=== PATIENT | female | born 1960 | race Caucasian/White ===

== ENCOUNTER → 2016-11-23 | Outpatient (CLI) | payer BC ==
--- NOTE | 2016-11-23 16:21 | CT ---
EXAMINATION: Non contrast CT head and CT sinuses. Coronal and sagittal reformats. HISTORY: Chronic sinusitis FINDINGS: Head: No evidence of intra or extra axial hemorrhage, mass, midline shift, hydrocephalus or edema. No hypoattenuation changes in the major vascular territories to suggest acute infarct. No abnormal intracranial calcifications are detected. No evidence of substantial vascular calcifications. Pit uitary fossa appears unremarkable. The calvarium is intact. No evidence of skull fracture. Moderate degenerative changes are noted within the right temporomandibular joint. Sinuses: The maxillary, and sphenoid sinuses are grossly clear. The frontal sinuses are hypoplastic. There is opacification of a few ethmoid air cells. The frontoethmoidal and sphenoethmoidal recesses are clear. Bilateral antrostomy changes are noted. No air-fluid levels or bony destruction. Nasal s eptum is essentially midline. The mastoid air cells are clear. Bone mineralization appears normal. N o evidence of a facial bone injury. IMPRESSION: 1. No acute intracranial findings. 2. Minimal paranasal sinus disease. 3. Moderate right temporomandibular joint degenerative changes.
== END ==
LOC: MW.DI 12:54
PROVIDERS: ATTEND Physician Assistant
DX: J01.00 Acute maxillary sinusitis, unspecified (principal); J32.9 Chronic sinusitis, unspecified
CPT/HCPCS: 70450; 70450-26; 70486; 70486-26; 87070; 87102; 87205

== ENCOUNTER 2017-09-19 12:17 | Day surgery (SDC) | payer BC ==
[~2017-09-19 12:17] MED LIST: Lactated Ringers 1,000 ML IV SCH; Sodium Chloride 0.9% 10 ML Syringe FLUSH PRN; Sodium Chloride 0.9% 2.5 ML Syringe FLUSH PRN
[2017-09-19] MEDS ORDERED: fentaNYL 100 MCG/2 ML SDV ONE (12:24)
[2017-09-19] MEDS ORDERED: Midazolam 1 MG/ML 2 ML SDV ONE (12:24)
[2017-09-19] MEDS ORDERED: Propofol 200 MG/20 ML SDV ONE (12:24)
--- NOTE | 2017-09-19 13:02 | PCM.PREANE ---
Preanesthetic Assessment - Anesthesia/Transfusion/Family Hx Anesthesia History: Prior Anesthesia Without Reaction Family History of Anesthesia Reaction: No Transfusion History: No Prior Transfusion(s) Intubation History: Unknown - Review of Systems General: No Symptoms Pulmonary: No Symptoms Cardiovascular: No Symptoms Gastrointestinal: No Symptoms, Other (family h/o colon cancer) Neurological: No Symptoms Other: Reports: None - Physical Assessment O2 Sat by Pulse Oximetry: 98 Respiratory Rate: 16 Vital Signs: Last Vital Signs Temp 37.4 C 09/19/17 12:43 Pulse Resp 16 09/19/17 12:43 BP 120/80 09/19/17 12:43 Pulse Ox 98 09/19/17 12:43 Height: 1.68 m Weight: 78.018 kg ASA Class: 2 Mental Status: Alert & Oriented x3 Airway Class: Mallampati = 2 Dentition: Reports: Normal Dentition Thyro-Mental Finger Breadths: 3 Mouth Opening Finger Breadths: 3 ROM/Head Extension: Full Lungs: Clear to Auscultation, Normal Respiratory Effort Cardiovascular: Regular Rate, Regular Rhythm - Allergies Allergies/Adverse Reactions: Allergies Allergy/AdvReac Type Severity Reaction Status Date / Time No Known Allergies Allergy Verified 09/14/17 08:19 - Blood Blood Available: No - Anesthesia Plan Pre-Op Medication Ordered: None - Acknowledgements Anesthesia Type Planned: MAC Pt an Appropriate Candidate for the Planned Anesthesia: Yes Alternatives and Risks of Anesthesia Discussed w Pt/Guardian: Yes Pt/Guardian Understands and Agrees with Anesthesia Plan: Yes PreAnesthesia Questionnaire HEENT History: Reports: Allergic Rhinitis, Other (See Below) Other HEENT History: wears glasses/contacts, Cardiovascular History: Reports: High Cholesterol, Hypertension Gastrointestinal History: Reports: GERD Genitourinary History: Reports: Renal Calculus [employer] History: Reports: Musculoskeletal History: Reports: Arthritis Psychiatric History: Reports: Anxiety, Depression Immunologic History: Reports: Other (See Below) Other Immunologic History: hx MRSA Oncologic (Cancer) History: Reports: Basal Cell Carcinoma Other Oncologic History: basal cell to upper lip Dermatologic History: Reports: None - Past Surgical History Head Surgeries/Procedures: Reports: None HEENT Surgical History: Reports: Naso-Sinus Surgery GI Surgical History: Reports: Appendectomy, Cholecystectomy Female Surgical History: Reports: Hysterectomy (vaginal hysterectomy) Other Female Surgeries/Procedures: vaginal hysterectomy with bladder sling Dermatological Surgical History: Reports: Skin Biopsy - SUBSTANCE USE Smoking Status *Q: Never Smoker Days Per Week of Alcohol Use: 2 Number of Drinks Per Day: 1 Total Drinks Per Week: 2 Recreational Drug Use History: No - HOME MEDS Home Medications: Home Meds Lansoprazole [Prevacid 24Hr] 15 mg PO DAILY 11/20/13 [History] Losartan [Cozaar] 25 mg PO DAILY 11/20/13 [History] buPROPion [Wellbutrin] 300 mg PO DAILY 11/20/13 [History] FLUoxetine HCl [Fluoxetine HCl] 40 mg PO DAILY 09/13/17 [History] atorvaSTATin Calcium [Atorvastatin Calcium] 20 mg PO DAILY 09/13/17 [History] - CURRENT (IN HOUSE) MEDS Current Meds: Current Medications Lactated Ringer's (Ringers, Lactated) 1,000 mls @ 125 mls/hr IV ASDIRECTED FRANKIE Last Admin: 09/19/17 12:44 Dose: 125 mls/hr Sodium Chloride (Saline Flush) 10 ml FLUSH ASDIRECTED PRN PRN Reason: Keep Vein Open Sodium Chloride (Saline Flush) 2.5 ml FLUSH ASDIRECTED PRN PRN Reason: Keep Vein Open Sodium Chloride (Saline Flush) 10 ml FLUSH ASDIRECTED PRN PRN Reason: Keep Vein Open Sodium Chloride (Saline Flush) 2.5 ml FLUSH ASDIRECTED PRN PRN Reason: Keep Vein Open Discontinued Medications Fentanyl (Sublimaze) Confirm Administered Dose 100 mcg .ROUTE .STK-MED ONE Stop: 09/19/17 12:25 Midazolam HCl (Versed 1 Mg/Ml) Confirm Administered Dose 2 mg .ROUTE .STK-MED ONE Stop: 09/19/17 12:25 Propofol (Diprivan 20 Ml) Confirm Administered Dose 200 mg .ROUTE .STK-MED ONE Stop: 09/19/17 12:25
--- NOTE | 2017-09-19 13:42 | PCM.OPNOTE ---
- General Post-Op/Procedure Note Date of Surgery/Procedure: 09/19/17 Operative Procedure(s): Colonoscopy Findings: Sigmoid colon polyp Pre Op Diagnosis: Screening colon Post-Op Diagnosis: Sigmoid colon polyp Anesthesia Technique: MAC Primary Surgeon: Kristie Trujillo Condition: Good
--- NOTE | 2017-09-20 13:13 | OR ---
SURGEON: VANESA OSORIO MD DATE OF PROCEDURE: 09/19/2017 PREOPERATIVE DIAGNOSIS: Family history of colon cancer. POSTOPERATIVE DIAGNOSIS: Sigmoid colon polyp. PROCEDURE PERFORMED: Diagnostic colonoscopy. ANESTHESIA: MAC. INSTRUMENT USED: Olympus colonoscope. EXTENT OF EXAM: To the cecum. PREPARATION: Good. LIMITATIONS: None. INDICATION FOR EXAMINATION: The patient is a 57-year-old female with a family history of colon cancer. She had a colonoscopy 10 years ago that was normal. The patient and I discussed the need for a colonoscopy. We discussed the procedure, expected perioperative course, and risks including bleeding, infection, or damage to surrounding structures including perforation. The patient verbalized understanding and wishes to proceed. PROCEDURE IN DETAIL: The patient was brought to the endoscopy suite and placed in the left lateral decubitus position. A time-out was completed verifying the patient's name, age, date of , allergies, and procedure to be performed. Monitored anesthesia care was induced and continuous oxygen was provided via nasal cannula throughout the procedure. After adequate sedation was achieved, a digital rectal exam was performed. This exam was within normal limits. A well lubricated colonoscope was inserted in the rectum and advanced under direct visualization to the level of cecum. The cecum was identified by both visual and anatomic landmarks. A photograph was taken of the cecal cap as well as with the scope retroflexed within the cecum. The scope was then straightened out and fully withdrawn while examining the color, texture, anatomy, and integrity of the mucosa from the cecum to the anal canal. The patient was found to have a 1 to 2 mm sessile polyp in the sigmoid colon, this was removed using a cold biopsy forceps. The scope was then brought into the rectum and retroflexed to allow visualization of the anal canal opening. This appeared normal and a photograph was taken. The scope was then straightened out and removed from the patient. The cecum to anus time was 9 minutes. The patient tolerated the procedure well and was taken to PACU in stable condition. ENDOSCOPIC DIAGNOSIS: Sigmoid colon polyp. RECOMMENDATIONS: Follow up in clinic in 2 weeks. FRANCISCA ETIENNE /[id number]
== END 2017-09-19 15:10 | disposition home or self-care (01) ==
LOC: MW.SDS 12:17
PROVIDERS: ATTEND Surgery
DX: Z12.11 Encounter for screening for malignant neoplasm of colon (principal); K63.5 Polyp of colon; F32.9 Major depressive disorder, single episode, unspecified; K21.9 Gastro-esophageal reflux disease without esophagitis; E78.00 Pure hypercholesterolemia, unspecified; I10 Essential (primary) hypertension; Z79.899 Other long term (current) drug therapy; Z80.0 Family history of malignant neoplasm of digestive organs; Z72.0 Tobacco use
CPT/HCPCS: 45380; 88305; J2250; J3010; J7120; J2704

== ENCOUNTER 2020-01-10 20:12 | Emergency (ER) | payer BC ==
[2020-01-10] MEDS ORDERED: Sodium Chloride 0.9% 1,000 ML IV ONE (20:35)
--- NOTE | 2020-01-10 20:35 | EDM.PDOC ---
<Artemio Matt - Last Filed: 01/10/20 23:20> ED HPI GENERAL MEDICAL PROBLEM - General Chief Complaint: Genitourinary Problem Stated Complaint: POSSIBLE KIDNEY STONES Time Seen by Provider: 01/10/20 20:14 - Related Data Allergies Allergy/AdvReac Type Severity Reaction Status Date / Time No Known Allergies Allergy Verified 01/10/20 20:31 Home Meds: Home Meds Lansoprazole [Prevacid 24Hr] 15 mg PO DAILY 11/20/13 [History] Losartan [Cozaar] 25 mg PO DAILY 11/20/13 [History] buPROPion [Wellbutrin] 300 mg PO DAILY 11/20/13 [History] FLUoxetine HCl [Fluoxetine HCl] 40 mg PO DAILY 09/13/17 [History] atorvaSTATin Calcium [Atorvastatin Calcium] 20 mg PO DAILY 09/13/17 [History] Dicyclomine [Bentyl] 20 mg PO QIDACANDBED #30 tab 01/10/20 [Rx] Course - Vital Signs Text/Narrative:: Patient was reexamined at 11:[address] was unremarkable for any surgical pathology. On reexam she has still some left upper quadrant pain that is minimally tender going to give her some Pepcid and Bentyl and she will be discharged home follow-up with primary care return to the ED for worsening pain Last Recorded V/S: Last Vital Signs Temp 97.3 F 01/10/20 23:23 Pulse 71 01/10/20 23:23 Resp 18 01/10/20 23:23 BP 143/99 H 01/10/20 23:23 Pulse Ox 96 01/10/20 23:23 - Orders/Labs/Meds Labs: Laboratory Tests 01/10/20 01/10/20 01/10/20 Range/Units 20:30 20:58 20:58 WBC 7.93 (4.0-11.0) K/uL RBC 4.61 (4.30-5.90) M/uL Hgb 14.4 (12.0-16.0) g/dL Hct 42.9 (36.0-46.0) % MCV 93.1 (80.0-98.0) fL MCH 31.2 (27.0-32.0) pg MCHC 33.6 (31.0-37.0) g/dL RDW Std Deviation 43.1 (28.0-62.0) fl RDW Coeff of Franco 13 (11.0-15.0) % Plt Count 321 (150-400) K/uL MPV 9.90 (7.40-12.00) fL Neut % (Auto) 47.1 L (48.0-80.0) % Lymph % (Auto) 43.0 H (16.0-40.0) % Hettinger % (Auto) 8.2 (0.0-15.0) % Eos % (Auto) 1.4 (0.0-7.0) % Baso % (Auto) 0.3 (0.0-1.5) % Neut # (Auto) 3.7 (1.4-5.7) K/uL Lymph # (Auto) 3.4 H (0.6-2.4) K/uL Hettinger # (Auto) 0.7 (0.0-0.8) K/uL Eos # (Auto) 0.1 (0.0-0.7) K/uL Baso # (Auto) 0.0 (0.0-0.1) K/uL Nucleated RBC % 0.0 /100WBC Nucleated RBCs # 0 K/uL Sodium 143 (136-145) mmol/L Potassium 3.8 (3.5-5.1) mmol/L Chloride 105 (98-107) mmol/L Carbon Dioxide 27.9 (21.0-32.0) mmol/L BUN 12 (7.0-18.0) mg/dL Creatinine 0.9 (0.6-1.0) mg/dL Est Cr Clr Drug Dosing 64.56 mL/min Estimated GFR (MDRD) > 60.0 ml/min Glucose 128 H (74-106) mg/dL Calcium 8.8 (8.5-10.1) mg/dL Total Bilirubin 0.2 (0.2-1.0) mg/dL AST 27 (15-37) IU/L ALT 45 (14-63) IU/L Alkaline Phosphatase 88 (46-116) U/L Total Protein 7.2 (6.4-8.2) g/dL Albumin 3.9 (3.4-5.0) g/dL Globulin 3.3 (2.6-4.0) g/dL Albumin/Globulin Ratio 1.2 (0.9-1.6) Lipase (73-393) U/L Urine Color YELLOW Urine Appearance CLEAR Urine pH 5.5 (5.0-8.0) Ur Specific Franklin 1.025 (1.001-1.035) Urine Protein NEGATIVE (NEGATIVE) mg/dL Urine Glucose (UA) NEGATIVE (NEGATIVE) mg/dL Urine Ketones TRACE H (NEGATIVE) mg/dL Urine Occult Blood NEGATIVE (NEGATIVE) Urine Nitrite NEGATIVE (NEGATIVE) Urine Bilirubin NEGATIVE (NEGATIVE) Urine Urobilinogen 0.2 (<2.0) EU/dL Ur Leukocyte Esterase NEGATIVE (NEGATIVE) Ethyl Alcohol mg/dL 01/10/20 01/10/20 Range/Units 20:58 20:58 WBC (4.0-11.0) K/uL RBC (4.30-5.90) M/uL Hgb (12.0-16.0) g/dL Hct (36.0-46.0) % MCV (80.0-98.0) fL MCH (27.0-32.0) pg MCHC (31.0-37.0) g/dL RDW Std Deviation (28.0-62.0) fl RDW Coeff of Franco (11.0-15.0) % Plt Count (150-400) K/uL MPV (7.40-12.00) fL Neut % (Auto) (48.0-80.0) % Lymph % (Auto) (16.0-40.0) % Hettinger % (Auto) (0.0-15.0) % Eos % (Auto) (0.0-7.0) % Baso % (Auto) (0.0-1.5) % Neut # (Auto) (1.4-5.7) K/uL Lymph # (Auto) (0.6-2.4) K/uL Hettinger # (Auto) (0.0-0.8) K/uL Eos # (Auto) (0.0-0.7) K/uL Baso # (Auto) (0.0-0.1) K/uL Nucleated RBC % /100WBC Nucleated RBCs # K/uL Sodium (136-145) mmol/L Potassium (3.5-5.1) mmol/L Chloride (98-107) mmol/L Carbon Dioxide (21.0-32.0) mmol/L BUN (7.0-18.0) mg/dL Creatinine (0.6-1.0) mg/dL Est Cr Clr Drug Dosing mL/min Estimated GFR (MDRD) ml/min Glucose (74-106) mg/dL Calcium (8.5-10.1) mg/dL Total Bilirubin (0.2-1.0) mg/dL AST (15-37) IU/L ALT (14-63) IU/L Alkaline Phosphatase (46-116) U/L Total Protein (6.4-8.2) g/dL Albumin (3.4-5.0) g/dL Globulin (2.6-4.0) g/dL Albumin/Globulin Ratio (0.9-1.6) Lipase 130 (73-393) U/L Urine Color Urine Appearance Urine pH (5.0-8.0) Ur Specific Franklin (1.001-1.035) Urine Protein (NEGATIVE) mg/dL Urine Glucose (UA) (NEGATIVE) mg/dL Urine Ketones (NEGATIVE) mg/dL Urine Occult Blood (NEGATIVE) Urine Nitrite (NEGATIVE) Urine Bilirubin (NEGATIVE) Urine Urobilinogen (<2.0) EU/dL Ur Leukocyte Esterase (NEGATIVE) Ethyl Alcohol < 3.0 mg/dL Meds: Medications Discontinued Medications Generic Name Dose Route Start Last Admin Trade Name Freq PRN Reason Stop Dose Admin Dicyclomine HCl 20 mg 01/10/20 23:20 01/10/20 23:52 Bentyl PO 01/10/20 23:21 20 mg ONETIME ONE Administration Famotidine 20 mg 01/10/20 23:20 01/10/20 23:52 Pepcid IVPUSH 01/10/20 23:21 20 mg ONETIME ONE Administration Sodium Chloride 1,000 mls @ 999 mls/hr 01/10/20 20:35 01/10/20 20:58 Normal Saline IV 01/10/20 21:35 999 mls/hr STAT ONE Administration Iopamidol 100 ml 01/10/20 21:56 01/10/20 21:56 Isovue-370 (76%) IVPUSH 01/10/20 21:57 100 ml ONETIME ONE Administration Ketorolac Tromethamine 30 mg 01/10/20 22:28 01/10/20 22:35 Toradol IVPUSH 01/10/20 22:29 30 mg ONETIME ONE Administration Morphine Sulfate 4 mg 01/10/20 20:38 01/10/20 21:02 Morphine IVPUSH 01/10/20 20:39 4 mg ONETIME ONE Administration Ondansetron HCl 4 mg 01/10/20 20:38 01/10/20 21:01 Zofran IVPUSH 01/10/20 20:39 4 mg ONETIME ONE Administration Departure - Departure Time of Disposition: 23:22 Disposition: Home, Self-Care 01 Condition: Good Clinical Impression: Abdominal pain - Discharge Information *PRESCRIPTION DRUG MONITORING PROGRAM REVIEWED*: Not Applicable *COPY OF PRESCRIPTION DRUG MONITORING REPORT IN PATIENT BEA: Not Applicable Prescriptions: Dicyclomine [Bentyl] 20 mg PO QIDACANDBED #30 tab Instructions: Abdominal Pain, Adult, [id number] Referrals: PCP,None [Primary Care Provider] - Forms: ED Department Discharge Additional Instructions: The following information is given to patients seen in the emergency department who are being discharged to home. This information is to outline your options for follow-up care. We provide all patients seen in our emergency department with a follow-up referral. The need for follow-up, as well as the timing and circumstances, are variable depending upon the specifics of your emergency department visit. If you don't have a primary care physician on staff, we will provide you with a referral. We always advise you to contact your personal physician following an emergency department visit to inform them of the circumstance of the visit and for follow-up with them and/or the need for any referrals to a consulting specialist. The emergency department will also refer you to a specialist when appropriate. This referral assures that you have the opportunity for follow-up care with a specialist. All of these measure are taken in an effort to provide you with optimal care, which includes your follow-up. Under all circumstances we always encourage you to contact your private physician who remains a resource for coordinating your care. When calling for follow-up care, please make the office aware that this follow-up is from your recent emergency room visit. If for any reason you are refused follow-up, please contact the [facility] Emergency Department at and asked to speak to the emergency department charge nurse. [facility] [address] [place] [address] [facility] [address] [place] [address] 1. Please use Tylenol and/or Ibuprofen as needed for pain and fever management. 2. Get plenty of Rest. Encourage fluids to prevent dehydration. 3. Please follow up with your primary care provider. Return to the ED as needed as discussed. Sepsis Event Note - Focused Exam Vital Signs: Vital Signs Temp Pulse Resp BP Pulse Ox 01/10/20 23:23 97.3 F 71 18 143/99 H 96 Date Exam was Performed: 01/10/20 Time Exam was Performed: 23:20 <Jocelyn Gunter E - Last Filed: 01/11/20 10:09> ED HPI GENERAL MEDICAL PROBLEM - General Source of Information: Reports: Patient History Limitations: Reports: No Limitations - History of Present Illness INITIAL COMMENTS - FREE TEXT/NARRATIVE: HISTORY AND PHYSICAL: History of present illness: Patient is a 59-year-old female who presents to the emergency room with complaints of left sided flank pain that goes to her left abdomen. She states she does have a history of kidney stones and thought maybe she had a kidney stone that was causing her pain. She describes it as sharp stabbing discomfort. Patient denies any fever, chills, headache, change in vision, syncope or near syncope. Denies any chest pain, back pain, shortness of breath or cough. Denies any nausea, vomiting, diarrhea, constipation or dysuria. Has not noted any blood in urine or stool. Patient has been eating and drinking appropriately. She states she did have some alcohol last evening although is not a daily drinker. Denies any drug abuse. Review of systems: As per history of present illness and below otherwise all systems reviewed and negative. Past medical history: As per history of present illness and as reviewed below otherwise noncontributory. Surgical history: As per history of present illness and as reviewed below otherwise noncontributory. Social history: See social history for further information Family history: As per history of present illness and as reviewed below otherwise noncontributory. Physical exam: General: Well-developed and well-nourished 59-year-old female. Alert and oriented. Flat appearing and avoids eye contact. Nontoxic-appearing and in no acute distress. Vital signs have been reviewed by me. HEENT: Atraumatic, normocephalic, pupils equal and reactive bilaterally, negative for conjunctival pallor or scleral icterus, mucous membranes moist, TMs normal bilaterally, throat clear, neck supple, nontender, trachea midline. No drooling or trismus noted. No meningeal signs. No hot potato voice noted. Lungs: Clear to auscultation, breath sounds equal bilaterally, chest nontender. Heart: S1S2, regular rate and rhythm without overt murmur Abdomen: Soft, nondistended, left upper and left lower quadrant tenderness. Negative for costovertebral tenderness. Pelvis: Stable nontender. Skin: Intact, warm, dry. No lesions or rashes noted. Extremities: Atraumatic, moves all extremities per self without difficulty or deficits, negative for cords or calf pain. Neurovascular unremarkable. Neuro: Awake, alert, oriented. Cranial nerves II through XII unremarkable. Cerebellum unremarkable. Motor and sensory unremarkable throughout. Exam nonfocal. Notes: Lab work is unremarkable. CT shows a large hiatal hernia. They do recommend an MRCP as outpatient for intra-and extrahepatic biliary ductal dilatation to exclude an occult obstructing lesion. Patient's pain has improved. We discussed all diagnostic findings. Supportive care measures were reviewed and discussed. Voices understanding and is agreeable to plan of care. Denies any further questions or concerns at this time. Diagnostics: CBC, CMP, UA, lipase, EtOH Therapeutics: IV fluid Prescription: None Impression: Abdominal pain Plan: 1. Please use Tylenol and/or Ibuprofen as needed for pain and fever management. 2. Get plenty of Rest. Encourage fluids to prevent dehydration. 3. Please follow up with your primary care provider. Return to the ED as needed as discussed. Definitive disposition and diagnosis as appropriate pending reevaluation and review of above. 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: Musculoskeletal History: Reports: Arthritis Psychiatric History: Reports: Anxiety, Depression Immunologic History: Reports: Other (See Below) Other Immunologic History: hx MRSA Oncologic (Cancer) History: Reports: Basal Cell Carcinoma Other Oncologic History: basal cell to upper lip Dermatologic History: Reports: None - Past Surgical History Head Surgeries/Procedures: Reports: None HEENT Surgical History: Reports: Naso-Sinus Surgery GI Surgical History: Reports: Appendectomy, Cholecystectomy Female Surgical History: Reports: Hysterectomy (vaginal hysterectomy) Other Female Surgeries/Procedures: vaginal hysterectomy with bladder sling Dermatological Surgical History: Reports: Skin Biopsy ED ROS GENERAL - Review of Systems Review Of Systems: Comprehensive ROS is negative, except as noted in HPI. ED EXAM, GI/ABD - Physical Exam Exam: See Below (See dictation) Course - Orders/Labs/Meds Labs: Laboratory Tests 01/10/20 01/10/20 01/10/20 Range/Units 20:30 20:58 20:58 WBC 7.93 (4.0-11.0) K/uL RBC 4.61 (4.30-5.90) M/uL Hgb 14.4 (12.0-16.0) g/dL Hct 42.9 (36.0-46.0) % MCV 93.1 (80.0-98.0) fL MCH 31.2 (27.0-32.0) pg MCHC 33.6 (31.0-37.0) g/dL RDW Std Deviation 43.1 (28.0-62.0) fl RDW Coeff of Franco 13 (11.0-15.0) % Plt Count 321 (150-400) K/uL MPV 9.90 (7.40-12.00) fL Neut % (Auto) 47.1 L (48.0-80.0) % Lymph % (Auto) 43.0 H (16.0-40.0) % Hettinger % (Auto) 8.2 (0.0-15.0) % Eos % (Auto) 1.4 (0.0-7.0) % Baso % (Auto) 0.3 (0.0-1.5) % Neut # (Auto) 3.7 (1.4-5.7) K/uL Lymph # (Auto) 3.4 H (0.6-2.4) K/uL Hettinger # (Auto) 0.7 (0.0-0.8) K/uL Eos # (Auto) 0.1 (0.0-0.7) K/uL Baso # (Auto) 0.0 (0.0-0.1) K/uL Nucleated RBC % 0.0 /100WBC Nucleated RBCs # 0 K/uL Sodium 143 (136-145) mmol/L Potassium 3.8 (3.5-5.1) mmol/L Chloride 105 (98-107) mmol/L Carbon Dioxide 27.9 (21.0-32.0) mmol/L BUN 12 (7.0-18.0) mg/dL Creatinine 0.9 (0.6-1.0) mg/dL Est Cr Clr Drug Dosing 64.56 mL/min Estimated GFR (MDRD) > 60.0 ml/min Glucose 128 H (74-106) mg/dL Calcium 8.8 (8.5-10.1) mg/dL Total Bilirubin 0.2 (0.2-1.0) mg/dL AST 27 (15-37) IU/L ALT 45 (14-63) IU/L Alkaline Phosphatase 88 (46-116) U/L Total Protein 7.2 (6.4-8.2) g/dL Albumin 3.9 (3.4-5.0) g/dL Globulin 3.3 (2.6-4.0) g/dL Albumin/Globulin Ratio 1.2 (0.9-1.6) Lipase (73-393) U/L Urine Color YELLOW Urine Appearance CLEAR Urine pH 5.5 (5.0-8.0) Ur Specific Franklin 1.025 (1.001-1.035) Urine Protein NEGATIVE (NEGATIVE) mg/dL Urine Glucose (UA) NEGATIVE (NEGATIVE) mg/dL Urine Ketones TRACE H (NEGATIVE) mg/dL Urine Occult Blood NEGATIVE (NEGATIVE) Urine Nitrite NEGATIVE (NEGATIVE) Urine Bilirubin NEGATIVE (NEGATIVE) Urine Urobilinogen 0.2 (<2.0) EU/dL Ur Leukocyte Esterase NEGATIVE (NEGATIVE) Ethyl Alcohol mg/dL 01/10/20 01/10/20 Range/Units 20:58 20:58 WBC (4.0-11.0) K/uL RBC (4.30-5.90) M/uL Hgb (12.0-16.0) g/dL Hct (36.0-46.0) % MCV (80.0-98.0) fL MCH (27.0-32.0) pg MCHC (31.0-37.0) g/dL RDW Std Deviation (28.0-62.0) fl RDW Coeff of Franco (11.0-15.0) % Plt Count (150-400) K/uL MPV (7.40-12.00) fL Neut % (Auto) (48.0-80.0) % Lymph % (Auto) (16.0-40.0) % Hettinger % (Auto) (0.0-15.0) % Eos % (Auto) (0.0-7.0) % Baso % (Auto) (0.0-1.5) % Neut # (Auto) (1.4-5.7) K/uL Lymph # (Auto) (0.6-2.4) K/uL Hettinger # (Auto) (0.0-0.8) K/uL Eos # (Auto) (0.0-0.7) K/uL Baso # (Auto) (0.0-0.1) K/uL Nucleated RBC % /100WBC Nucleated RBCs # K/uL Sodium (136-145) mmol/L Potassium (3.5-5.1) mmol/L Chloride (98-107) mmol/L Carbon Dioxide (21.0-32.0) mmol/L BUN (7.0-18.0) mg/dL Creatinine (0.6-1.0) mg/dL Est Cr Clr Drug Dosing mL/min Estimated GFR (MDRD) ml/min Glucose (74-106) mg/dL Calcium (8.5-10.1) mg/dL Total Bilirubin (0.2-1.0) mg/dL AST (15-37) IU/L ALT (14-63) IU/L Alkaline Phosphatase (46-116) U/L Total Protein (6.4-8.2) g/dL Albumin (3.4-5.0) g/dL Globulin (2.6-4.0) g/dL Albumin/Globulin Ratio (0.9-1.6) Lipase 130 (73-393) U/L Urine Color Urine Appearance Urine pH (5.0-8.0) Ur Specific Franklin (1.001-1.035) Urine Protein (NEGATIVE) mg/dL Urine Glucose (UA) (NEGATIVE) mg/dL Urine Ketones (NEGATIVE) mg/dL Urine Occult Blood (NEGATIVE) Urine Nitrite (NEGATIVE) Urine Bilirubin (NEGATIVE) Urine Urobilinogen (<2.0) EU/dL Ur Leukocyte Esterase (NEGATIVE) Ethyl Alcohol < 3.0 mg/dL Meds: Medications Discontinued Medications Generic Name Dose Route Start Last Admin Trade Name Freq PRN Reason Stop Dose Admin Dicyclomine HCl 20 mg 01/10/20 23:20 01/10/20 23:52 Bentyl PO 01/10/20 23:21 20 mg ONETIME ONE Administration Famotidine 20 mg 01/10/20 23:20 01/10/20 23:52 Pepcid IVPUSH 01/10/20 23:21 20 mg ONETIME ONE Administration Sodium Chloride 1,000 mls @ 999 mls/hr 01/10/20 20:35 01/10/20 20:58 Normal Saline IV 01/10/20 21:35 999 mls/hr STAT ONE Administration Iopamidol 100 ml 01/10/20 21:56 01/10/20 21:56 Isovue-370 (76%) IVPUSH 01/10/20 21:57 100 ml ONETIME ONE Administration Ketorolac Tromethamine 30 mg 01/10/20 22:28 01/10/20 22:35 Toradol IVPUSH 01/10/20 22:29 30 mg ONETIME ONE Administration Morphine Sulfate 4 mg 01/10/20 20:38 01/10/20 21:02 Morphine IVPUSH 01/10/20 20:39 4 mg ONETIME ONE Administration Ondansetron HCl 4 mg 01/10/20 20:38 01/10/20 21:01 Zofran IVPUSH 01/10/20 20:39 4 mg ONETIME ONE Administration Sepsis Event Note - Evaluation Sepsis Screening Result: No Definite Risk - Focused Exam Date Exam was Performed: 01/11/20 Time Exam was Performed: 10:07
[2020-01-10] MEDS ORDERED: Ondansetron 4 MG/2 ML SDV IVPUSH ONE (20:38)
[2020-01-10] MEDS ORDERED: Morphine 4 MG/ML Syringe IVPUSH ONE (20:38)
[2020-01-10 21:36] LABS: BLOOD UREA NITROGEN,BUN 12 mg/dL (7.0-18.0); CARBON DIOXIDE,CO2 27.9 mmol/L (21.0-32.0); CHLORIDE,CL 105 mmol/L (98-107); GLUCOSE RANDOM 128 mg/dL (74-106); POTASSIUM,K 3.8 mmol/L (3.5-5.1); SODIUM,NA 143 mmol/L (136-145)
[2020-01-10] MEDS ORDERED: Iopamidol 755 Mg/ML 100 ML Bottle IVPUSH ONE (21:56)
[2020-01-10] MEDS ORDERED: Ketorolac 30 MG/ML SDV IVPUSH ONE (22:28)
--- NOTE | 2020-01-10 23:01 | CT ---
INDICATION: Left lower quadrant abdominal pain TECHNIQUE: CT abdomen and pelvis acquired with IV contrast. 100 mL IV Isovue 370 COMPARISON: None. FINDINGS: Lower chest: Unremarkable. Liver: There is focal fatty infiltration in the left lobe of the liver along the falciform ligament. A 7 mm hypoattenuating lesion in hepatic segment 2 is too small accurately characterize but likely a benign cyst. No suspicious hepatic. Gallbladder and bile ducts: Status post cholecystectomy. There is mild to moderate diffuse intrahepatic biliary ductal dilatation. The common duct is also dilated up to 2.3 cm to the level of the ampulla. No obstructing mass or stone is identified. Spleen: Unremarkable. Small splenule is noted. Pancreas: The pancreas enhances homogeneously. There is no pancreatic ductal dilatation. Adrenal glands: Unremarkable. Kidneys: No kidney or ureteral stones and no hydronephrosis. No suspicious renal lesions. GI tract: Large hiatal hernia containing greater than 50 percent of the stomach. Normal caliber small and large bowel without evidence of obstruction or inflammation. Appendix is not visualized but there is no evidence of acute appendicitis. Vascular structures: No sign of aneurysm. Lymph nodes: Unremarkable. Miscellaneous: No ascites. No free air. Pelvic Organs: The uterus is atrophic or surgically absent. The urinary bladder appears unremarkable. Bones: No acute abnormality. No suspicious bone lesion. IMPRESSION: 1. Large hiatal hernia. 2. Intra and extrahepatic biliary ductal dilatation to the level of the ampulla. This could be related to the postcholecystectomy state or stricture however nonemergent MRCP is recommended to exclude an occult obstructing lesion. Please note that all CT scans at this facility use dose modulation, iterative reconstruction, and/or weight-based dosing when appropriate to reduce radiation dose to as low as reasonably achievable. Dictated by Caroline Saleem MD @ Jan 10 2020 10:42PM Signed by Dr. Caroline Saleem @ Jan 10 2020 11:00PM
[2020-01-10] MEDS ORDERED: Dicyclomine 10 MG Cap PO ONE (23:20)
[2020-01-10] MEDS ORDERED: Famotidine 20 MG/2 ML SDV IVPUSH ONE (23:20)
== END 2020-01-11 00:01 | disposition home or self-care (01) ==
LOC: MW.ED 20:12
DX: R10.32 Left lower quadrant pain (principal); R10.12 Left upper quadrant pain; I10 Essential (primary) hypertension; E78.00 Pure hypercholesterolemia, unspecified; M19.90 Unspecified osteoarthritis, unspecified site; K21.9 Gastro-esophageal reflux disease without esophagitis; F41.9 Anxiety disorder, unspecified; F32.9 Major depressive disorder, single episode, unspecified; Z90.49 Acquired absence of other specified parts of digestive tract; Z90.710 Acquired absence of both cervix and uterus; Z79.899 Other long term (current) drug therapy
CPT/HCPCS: 36415; 74177; 80053; 80307; 81003; 83690; 85025; 96374; 96375; 99284; A9270; J1885; J2270; J2405; J7030; Q9967; S0028; 99283; J3490

== ENCOUNTER 2022-03-07 09:19 | Emergency (ER) | payer BC ==
[2022-03-07 10:16] LABS: POTASSIUM,K 3.7 mmol/L (3.5-5.1)
== END 2022-03-07 10:58 | disposition home or self-care (01) ==
LOC: MW.ED 09:19
DX: R68.84 Jaw pain (principal); E78.00 Pure hypercholesterolemia, unspecified; I10 Essential (primary) hypertension; K21.9 Gastro-esophageal reflux disease without esophagitis; Z79.899 Other long term (current) drug therapy
CPT/HCPCS: 36415; 80053; 82947; 84484; 85025; 93005; 93010; 99283

== ENCOUNTER 2022-11-02 06:32 | Day surgery (SDC) | payer OTHER ==
[~2022-11-02 06:32] MED LIST changes: +Sodium Chloride 0.9% 20 ML SDV IV PRN
[2022-11-02] MEDS ORDERED: Propofol 200 MG/20 ML SDV ONE (07:21)
[2022-11-02] MEDS ORDERED: Lidocaine 2% 5 ML SDV ONE (07:21)
[2022-11-02] MEDS ORDERED: fentaNYL 100 MCG/2 ML SDV ONE (07:21)
== END 2022-11-02 09:35 | disposition home or self-care (01) ==
LOC: MW.SDS 06:32
PROVIDERS: ATTEND Surgery
DX: Z12.11 Encounter for screening for malignant neoplasm of colon (principal); D12.3 Benign neoplasm of transverse colon; D12.2 Benign neoplasm of ascending colon; M19.90 Unspecified osteoarthritis, unspecified site; F32.A Depression, unspecified; K21.9 Gastro-esophageal reflux disease without esophagitis; E78.00 Pure hypercholesterolemia, unspecified; I10 Essential (primary) hypertension; Z80.0 Family history of malignant neoplasm of digestive organs; Z79.899 Other long term (current) drug therapy; Z83.71 Family history of colonic polyps
CPT/HCPCS: 45380; 45385; J2704; J3010; J7120; 00812; J3490